=== PATIENT | male | born 1955 | race Caucasian/White ===

== ENCOUNTER → 2019-03-18 | Outpatient (CLI) | payer MEDICARE, BC ==
[~2019-03-18] MED LIST: APRESOLINE50 MG PO; CALCIUM 500+D1 EACH; CLONIDINE HCL0.1 MG PO; DOXAZOSIN MESYLA2 MG PO; FENOFIBRATE145 MG; FISH OIL 1,0001 EAC2; GARLIC200 MG; HYDROCHLOROTHIA25 MG; KIONEX15 GM/60 M; MAGNESIUM OXID400 MG PO; METOPROLOL TART50 MG PO; PROTONIX40 M2 PO; SIMVASTATIN20 MG PO; TACROLIMUS; THIAMINE HCL50 M1 PO; VITAMIN D1000 UNI1 PO; Z JANUMET PO; Z.0.AMARYL4 MG PO; Z.0.BYSTOLIC10 MG PO; Z.0.CLINDAMYCIN HC30 PO; Z.0.FOLIC ACID1 MG PO; Z.0.LEVOTHROID75 MCG PO; Z.0.LEVOXYL50 MCG PO; Z.0.LOVASTATIN40 MG PO; Z.0.MULTIVITAMINS1 E PO; [UNRECOGNIZED DRUG - OTHER]; [UNRECOGNIZED DRUG - OTHER] PO; [UNRECOGNIZED DRUG - OTHER] PO
--- NOTE | 2019-03-19 14:23 | Diagnostic Imaging Report ---
EXAM: Bone mineral density study 03/18/2019 2:11 PM INDICATION: ^LIVER TRANSPLANT DISORDER IMMUNOSUPPRESSION COMPARISON: Previous DEXA none. Baseline DEXA none FINDINGS: Evaluation of the left hip and lumbar spine was performed. The study is technically adequate. The patient's fracture risk is compared to an age-matched control. The patient denies prior surgery/fracture of the spine, hips or forearm. LEFT HIP * Femoral neck bone mineral density: 0.740 gm/cm2, T-score is -1.4, Z-score is -0.4. * Total bone mineral density: 0.916 gm/cm2, T-score is -0.8, Z-score is -0.3. LUMBAR SPINE * Total bone mineral density: 1.050 gm/cm2, T-score is -0.4, Z-score is 0.4. IMPRESSION: 1. LEFT HIP: Bone mineralization by WHO Classification is osteopenia, the fracture risk is moderate. 2. LUMBAR SPINE: Bone mineralization by WHO Classification is normal, the fracture risk is not increased. 3. Calculated 10 year risk of major osteoporotic fracture is 11%, hip fracture 0.9%. <T score: NL = -1 or higher Osteopenia = -1 to -2.5 Osteoporosis = -2.5 or lower Z score: < - 2 concerning for path> Signed by: Dr. Gregory Funes M.D. on 03/19/2019 2:19 PM
== END ==
LOC: DX 14:07
PROVIDERS: ATTEND Family Medicine
DX: T86.40 Unspecified complication of liver transplant (principal); Z79.899 Other long term (current) drug therapy
CPT/HCPCS: 77080

== ENCOUNTER → 2022-09-13 | Day surgery (SDC) | payer MEDICARE, BC ==
[2022-09-12 11:49] LABS: BASOPHILS % 0.3 % (0.0-1.0); EOSINOPHILS # (AUTO) 0.1 (0.0-0.4); EOSINOPHILS % 1.7 % (0.0-6.0); HEMOGLOBIN 13.7 g/dL (14.0-18.0); LYMPHOCYTES # (AUTO) 1.7 (1.0-3.2); LYMPHOCYTES % 24.2 % (18.0-39.1); MEAN CORPUSCULAR HEMOGLOBIN 33.1 pg (28-32); MEAN CORPUSCULAR HGB CONC 32.6 g/dL (31-35); MEAN CORPUSCULAR VOLUME 101.4 fL (81-99); MONOCYTES # (AUTO) 0.5 (0.2-0.8); MONOCYTES % 7.6 % (4.4-11.3); NEUTROPHILS # (AUTO) 4.7 (2.1-6.9); NEUTROPHILS % 65.8 % (38.7-80.0); PLATELET COUNT 184 x10e3/uL (140-360); RED BLOOD COUNT 4.14 x10e6/uL (4.3-5.7); RED CELL DISTRIBUTION WIDTH 12.9 % (11.7-14.4)
[2022-09-12 12:11] LABS: INR 0.93; PROTHROMBIN TIME 13.3 seconds (11.9-14.5)
[2022-09-12 12:12] LABS: PARTIAL THROMBOPLASTIN TIME 34.2 seconds (23.8-35.5)
[2022-09-12 12:19] LABS: ALBUMIN 3.8 g/dL (3.5-5.0); ANION GAP 15.5 mmol/L (8-16); CALCIUM 9.4 mg/dL (8.4-10.2); CREATININE, SERUM 1.24 mg/dL (0.72-1.25); POTASSIUM 4.5 mmol/L (3.5-5.1)
[~2022-09-13] MED LIST changes: +HYOSCYAMINE SULFATE 0.5 MG/ML INJ IV ONE; +LIDOCAINE HCL 2% LOCAL INJ 5 ML SDV VIAL INJ ONE; +POVIDONE IODINE 0.05% 0.05 % ML PO ONE; +PROGRAF1 MG PO; +PROPOFOL IV EMULSION 10 MG/ML 20 ML VIAL IV ONE; +PROPOFOL IV EMULSION 10 MG/ML 50 ML VIAL IV ONE; +PROPOFOL IV EMULSION 50 ML IV ONE; -TACROLIMUS; +TACROLIMUS PO; +VITAMIN D310 MC1 PO; -[UNRECOGNIZED DRUG - OTHER]; +[UNRECOGNIZED DRUG - OTHER] PO
[2022-09-13 19:45] VITALS: BP 140/82
== END | disposition home or self-care (01) ==
LOC: OR 12:42
PROVIDERS: ATTEND Internal Medicine Gastroenterology
DX: K29.50 Unspecified chronic gastritis without bleeding (principal); K31.A11 Gastric intestinal metaplasia without dysplasia, involving the antrum; K22.70 Barrett's esophagus without dysplasia; K20.90 Esophagitis, unspecified without bleeding; K44.9 Diaphragmatic hernia without obstruction or gangrene; K57.30 Diverticulosis of large intestine without perforation or abscess without bleeding; K64.8 Other hemorrhoids; Z71.3 Dietary counseling and surveillance; I44.0 Atrioventricular block, first degree; I12.9 Hypertensive chronic kidney disease with stage 1 through stage 4 chronic kidney disease, or unspecified chronic kidney disease; N18.9 Chronic kidney disease, unspecified; E03.9 Hypothyroidism, unspecified; Z88.8 Allergy status to other drugs, medicaments and biological substances; Z01.810 Encounter for preprocedural cardiovascular examination; Z01.812 Encounter for preprocedural laboratory examination; Z79.899 Other long term (current) drug therapy; Z68.29 Body mass index [BMI] 29.0-29.9, adult; Z94.4 Liver transplant status
CPT/HCPCS: 36415; 43239; 45378; 80053; 85025; 85610; 85730; 88305; 88342; 93005; C9113; J2704; 88312; J1980; J2001